=== PATIENT | male | born 1980 | race Caucasian/White ===

== ENCOUNTER 2018-06-17 11:24 | Emergency (ER) | payer OTHER ==
[~2018-06-17] VITALS: Ht 172.7 cm; Wt 72.6 kg
[2018-06-17] MEDS ORDERED: IMURAN50 MG PO (11:36)
[2018-06-17] MEDS ORDERED: REMICADE (11:37)
== END 2018-06-17 16:26 | disposition home or self-care (01) ==
LOC: ER 11:24
DX: B34.9 Viral infection, unspecified (principal); R50.9 Fever, unspecified